=== PATIENT | male | born 1965 | race Asian ===

== ENCOUNTER 2017-10-30 10:13 | Emergency (ER) | payer BC ==
[~2017-10-30] VITALS: Ht 167.6 cm; Wt 77.3 kg
[~2017-10-30 10:13] MED LIST: AVAPRO; BACTRIM 400 MG-1 TAB PO; CARTIA XT180 MG PO; LIPITOR 10MG10 MG PO; MYFORTIC180 MG PO; NORVASC 5MG5 MG/TAB PO; PROGRAF 1MG1 MG PO; PROTONIX20 MG PO; SLOW-MAG 6464 MG/TAB PO; VICODIN 5/5001 UDTAB PO; VITAMIN D32000 IU PO
[2017-10-30 11:10] LABS: COLLECTION METHOD CLEAN CATCH
[2017-10-30 11:17] LABS: BASO % 0.5 % (0.0-2.0); EOS # 0.1 (0.0-0.7); EOS % 0.9 % (0-4.0); GRAN # 5.8 (1.4-6.5); GRAN % 69.1 % (42.2-75.2); LYMPH # 1.6 (1.2-3.4); LYMPH % 18.6 % (20.0-51.0); MEAN CELL VOLUME 89 fl (80.0-100.0); MEAN CORPUSCULAR HGB CONC 32 g/dl (33.0-37.0); MEAN PLATELET VOLUME 9.4 fl (7.4-10.4); MONO # 0.9 (0.1-0.6); MONO % 10.3 % (1.7-9.3); PLATELET COUNT 206 K/mm3 (130-400); RED BLOOD COUNT 4.08 M/mm3 (4.20-5.60); REDCELL DISTRIBUTION WIDTH-CV 12.6 % (11.5-14.5)
[2017-10-30 11:18] LABS: HEMATOCRIT 36.4 % (42.0-52.0); HEMOGLOBIN 11.6 g/dl (13.5-18.0); MEAN CORPUSCULAR HEMOGLOBIN 28 pg (27.0-31.0)
[2017-10-30 11:26] LABS: MUCOUS Present /lpf; PH 6 (5-8); SQUAMOUS EPITHELIAL None Seen /hpf; URINE APPEARANCE Cloudy; URINE BACTERIA None Seen /hpf; URINE BILIRUBIN Negative (NEGATIVE); URINE BLOOD 1+ (NEGATIVE); URINE COLOR Yellow; URINE GLUCOSE Negative (NEGATIVE); URINE KETONE Negative (NEGATIVE); URINE LEUKOCYTE ESTERASE 3+ (NEGATIVE); URINE NITRATE Positive (NEGATIVE); URINE PROTEIN(semi-quant) 1+ (NEGATIVE); URINE UROBILINOGEN Negative (NEGATIVE)
[2017-10-30 11:30] LABS: ALBUMIN 4.2 gm/dL (3.5-5.0); CALCIUM 8.8 mg/dL (8.4-10.2); CREATININE, serum 2.45 mg/dL (0.66-1.25); POTASSIUM 4.2 mmol/L (3.4-5.0); TOTAL PROTEIN 7.6 gm/dL (6.4-8.2)
[2017-10-30 13:14] VITALS: PULSE 77
[2017-10-30 13:14] LABS: C-REACTIVE PROTEIN 14.6 mg/dL (0.0-0.9)
[2017-10-30] MEDS ORDERED: LEVAQUIN 5500 MG/TA1 PO (14:51)
[2017-10-30 15:20] VITALS: BP 100/63; TEMP 98.7
== END 2017-10-30 15:40 | disposition home or self-care (01) ==
LOC: COL.ER 10:13
PROVIDERS: Emergency Medicine
DX: N39.0 Urinary tract infection, site not specified (principal); I10 Essential (primary) hypertension; Z94.0 Kidney transplant status
CPT/HCPCS: J0696; J7030

== ENCOUNTER → 2021-06-24 | Outpatient (CLI) | payer BC ==
[~2021-06-24] MED LIST changes: +LEVAQUIN 5500 MG/TA1 PO
== END ==
LOC: COL.RAD 18:16
DX: R07.89 Other chest pain (principal)

== ENCOUNTER → 2021-06-25 | Outpatient (CLI) | payer BC ==
[2021-06-25 09:51] LABS: ANION GAP 9 mmol/L (7-16); BLOOD UREA NITROGEN 14 mg/dL (8-26); CALCIUM 9.5 mg/dL (8.4-10.2); CARBON DIOXIDE 22 mmol/L (22-29); CHLORIDE 105 mmol/L (98-107); CREATININE, serum 1.69 mg/dL (0.72-1.25); GLUCOSE 170 mg/dL (70-99); POTASSIUM 4.2 mmol/L (3.5-4.5); SODIUM 136 mmol/L (136-145)
[2021-06-25 09:59] LABS: TROPONIN-I < 0.010 ng/mL (0.00-0.033)
== END ==
LOC: ZCOL.LAB 09:20
PROVIDERS: Nurse Practitioner
DX: R07.89 Other chest pain (principal)